=== PATIENT | female | born 1965 | race Caucasian/White ===

== ENCOUNTER 2016-12-24 15:12 | Observation (INO) ==
--- NOTE | 2016-12-24 16:41 | History & Physical Report ---
<Maylin Bernardo Sonya - Last Filed: 12/24/16 17:12> History of Present Illness Date: 12/24/16 Chief complaint: right heel wound HPI: Began treating what she thought was a plantar wart to the heel of her right foot x 2 weeks, using duct tape. It seemed like it started to improve - she noticed a little hole or indention, but the callous remained. After about a week of treatment, she began running fevers up to 100.8, which occurred daily x1 week. She started having increased pain, swelling, and redness, and presented to [facility] ED on 12/20/16. A CT scan was done showing severe calcaneal area cellulitis; no osteomyelitis; no drainable fluid collection. She was discharged with Rx Clindamycin 300 mg QID. She followed up [facility] on 12/24/16 with really no improvement. Bedside I&D was done and cultures were obtained. However, given her failed outpatient treatment she was directly admitted to the hospitalist service for systemic abx and wound care referral. Review of Systems All systems: reviewed and no additional remarkable complaints except as stated - Constitutional Constitutional: Present: fever(s) (1 week before she went to the ED 100.8). Absent: chills, fatigue, headache(s), lethargy - EENMT Eyes: Absent: change in vision Nose: Absent: obstruction Mouth/Throat: Absent: sore throat - Cardiovascular Cardiovascular: Absent: chest pain, palpitations Vascular: Absent: pedal edema - Respiratory Respiratory: Absent: cough - Gastrointestinal Gastrointestinal: Absent: abdominal pain, constipation, diarrhea, nausea, vomiting - Genitourinary Menstruation: post menopausal (2010) - Musculoskeletal Musculoskeletal: Absent: back pain, muscle cramps, muscle weakness - Integumentary/Breasts Integumentary: Present: wounds (right heel) - Neurological Neurological: Present: abnormal gait. 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 Hospitalized in 2010 for pancytopenia, thought to be secondary to Imuran. HLD HTN DM2 GERD (mild) Obesity - BMI 32 Surgical History: Bone marrow bx in 2010 (Dr. Berry) - neg. Cholecystectomy in 2002. Family History: Father around age 78 - he had emphysema and unknown kind of cancer Mother and siblings still alive and well. 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 Absent: conjunctival icterus, scleral injection ENT: Present: mucous membranes moist, oropharynx clear - Routine Neck Exam Present: supple, lymphadenopathy - Routine Respiratory Exam Present: CTA bilaterally - Routine Cardiovascular Exam Present: RRR, S1, S2 - Routine Abdominal Exam Present: soft, normoactive bowel sounds, non distended, non tender - Routine Extremities Exam Present: clubbing (minimal), no edema, pulses intact, normal capillary refill - Routine Skin Exam Present: intact, dry, warm - Routine Neurological Exam Present: alert, oriented X3, vision grossly intact, hearing grossly intact - Routine Psychiatric Exam Present: normal affect, normal thought process Assessment and Plan (1) Cellulitis of heel, right Current visit: Yes Status: Acute (2) Type 2 diabetes mellitus Current visit: Yes Status: Chronic (3) Failure of outpatient treatment Problem details: Took clindamycin from 12/20-12/24 without improvement Current visit: Yes Status: Acute DVT Prophylaxis: SCD's Resuscitation Status: Full Code Assessment and Plan: Admit to observation status - cellulitis and failed outpatient treatment with 4 days of clindamycin. Consult Dr. Robertson for wound evaluation. Obtain MRI. CT was done on 12/20 showing cellulitis without osteomylelitis; phlegmon without drainable abscess. Pain meds : Dilaudid and [place] PRN. Will make NPO at midnight in the event surgery is indicated. Obtain baseline labs: CBC, CMP, CRP, lactate, BC, wound cx, hgb A1c. DM2 - used to take Metformin but hasn't for a long time; the only time she was on insulin was when she was hospitalized in 2010. Monitor blood sugars fasting and post prandial. Suspect we will need to restart Metformin at a minimum. Hx of TITLE SUPERVISOR vasculitis, immunocompromised state, previously on Imuran (which was dc'd d/t pancytopenia in 2010) and prednisone. Currently not treated. Tobacco abuse - she states she can quit on her own and pleasantly refused tobacco cessation information. Nicotine patch available. Discussed with CARLOS Norman with Dr. Robertson and Dr. Aguila. Further orders pending lab results. She will likely need PT/OT consult prior to discharge, given her difficulty ambulating. Sepsis Assessment - Focused Exam Vital Signs Temp Pulse Resp BP Pulse Ox 12/24/16 15:48 96.7 F L 77 18 175/93 H 100 Hospital Course Summary Disclaimer: The visit summary below is not to be considered part of the above Progress Note. Hospital Course: 12/24/16 17:30 Admit to observation status - cellulitis and failed outpatient treatment with 4 days of clindamycin. Consult Dr. Robertson for wound evaluation. Obtain MRI. CT was done on 12/20 showing cellulitis without osteomylelitis; phlegmon without drainable abscess. Pain meds : Dilaudid and [place] PRN. Will make NPO at midnight in the event surgery is indicated. Obtain baseline labs: CBC, CMP, CRP, lactate, BC, wound cx, hgb A1c. DM2 - used to take Metformin but hasn't for a long time; the only time she was on insulin was when she was hospitalized in 2010. Monitor blood sugars fasting and post prandial. Suspect we will need to restart Metformin at a minimum. Hx of TITLE SUPERVISOR vasculitis, immunocompromised state, previously on Imuran (which was dc'd d/t pancytopenia in 2010) and prednisone. Currently not treated. Tobacco abuse - she states she can quit on her own and pleasantly refused tobacco cessation information. Nicotine patch available. Discussed with CARLOS Norman with Dr. Robertson and Dr. Aguila. Further orders pending lab results. She will likely need PT/OT consult prior to discharge, given her difficulty ambulating. <Olesya Aguila - Last Filed: 12/24/16 19:55> History of Present Illness Date: 12/24/16 [facility] Patient Stated Medical History Cerebrovascular Accident Yes: 2010 Dental Problems Yes: upper dentures Hypertension Yes Diabetes Mellitus Type 2 Yes: NOT ON MEDS ANYMORE Gastroesophageal Reflux Yes Disease Cellulitis CURRENT Shingles Yes: in the 90's Exam Vital Signs: Temp Pulse Resp BP Pulse Ox 96.7 F L 77 18 175/93 H 100 12/24/16 15:48 12/24/16 15:48 12/24/16 15:48 12/24/16 15:48 12/24/16 15:48 Height: 1.55 m Weight: 76.8 kg Results - Labs CBC & Chem 7: 12/24/16 17:47 12/24/16 17:47 Assessment and Plan (1) Cellulitis of heel, right Current visit: Yes Status: Acute (2) Sepsis Current visit: Yes Status: Acute (3) Type 2 diabetes mellitus Problem details: A1C 9.5 on admission Current visit: Yes Status: Chronic (4) Failure of outpatient treatment Problem details: Took clindamycin from 12/20-12/24 without improvement Current visit: Yes Status: Acute (5) HTN (hypertension) Current visit: Yes Status: Chronic Assessment and Plan: I have independently evaluated and examined this patient. I reviewed the chart, the patient's history, and the SOLICITOR PATENT's documented findings as above. We discussed and formulated the assessment and plan as above with additions as below: Mrs. Jones is admitted with 2 weeks of pain in the plantar right foot with fever the past week, failure to respond to outpatient antibiotics as described above, and drainage at [facility] earlier today. No necrotic tissue was evident but there was brownish fluid when the wound was opened-cultures obtained. Examination reveals patient to be alert and cooperative. Temperature was low on arrival and blood pressure high. Respirations are nonlabored, breath sounds clear Neck rhythm regular Extremities without edema; plantar surface of the right foot has an area of erythema approximately 10 x 10 cm with irregular margins extending from the heel to the mid foot and onto the medial aspect of the foot. Just anterior to the heel there is a firm hypersensitive area which was opened with approximately 2 cm linear incision earlier today, there is minimal drainage and exposed surfaces appear to be viable tissue. There is a small callused area just posterior to this that appears to have been trimmed previously. There is warm to touch and exquisitely tender. White count is modestly elevated at 2.2, C-reactive protein 60.1, procalcitonin is nondetectable and lactic acid 1.0. Wound culture and blood cultures pending. Broad-spectrum antibiotics initiated, MRI ordered, surgical consultation pending. Diabetes is uncontrolled-diabetic diet, Accu-Cheks, corrective insulin, resume metformin. Pyuria noted-urine culture pending. CT of foot obtained last week and reviewed by myself, discussed with Dr. Jenkins and [facility] to admission, laboratory data reviewed, discussed with nursing. Sepsis Assessment - Evaluation Possible source: bone/joint, skin/soft tissue Confirmed Suspected Infection: Yes SIRS Criteria: temperature < or equal to 96.8, WBC > or equal to 12,000, plasma CRP >2 above normal - Focused Exam Vital Signs Temp Pulse Resp BP Pulse Ox 12/24/16 15:48 96.7 F L 77 18 175/93 H 100 Hospital Course Summary Disclaimer: The visit summary below is not to be considered part of the above Progress Note.
[2016-12-24] MEDS ORDERED: HYDROMORPHONE 2 MG/ML INJECTION IVP PRN (16:49)
[2016-12-24] MEDS ORDERED: ONDANSETRON 4 MG/2 ML INJECTION IVP PRN (16:49)
[2016-12-24] MEDS ORDERED: SALINE FLUSH 10ml SYRINGE IVF PRN (16:49)
[2016-12-24] MEDS ORDERED: NICOTINE 14 MG PATCH TD PRN (16:59)
[2016-12-24] MEDS ORDERED: LEVOFLOXACIN PREMIX 500 MG/100 ML BAG IV SCH (17:00)
[2016-12-24] MEDS ORDERED: SENNA + DOCUSATE TABLET PO PRN (17:02)
[2016-12-24] MEDS: NS 1,000 ML IV SCH ×2 (17:48→23:30)
--- NOTE | 2016-12-24 18:04 | Pharmacy Consult-Antibiotics ---
Pharmacy Consult-Vancomycin - Laboratory Information WBC 12.2 T/MM3 (4.5-11.0) H 12/24/16 17:47 Renal Fx WNL's, from earlier labs. Will start VANCOMYCIN 2gm IV q12hrs. Will check trough level to confirm within target range of 15-20mcg/ml. Thank you
[2016-12-24] MEDS: HYDROCODONE/APAP 5mg/325mg TABLET PO PRN ×2 (19:03→23:29)
[2016-12-24] MEDS ORDERED: INSULIN ASPART 100unit/ml INJECTION SQ PRN (19:51)
[2016-12-25] MEDS: HYDROCODONE/APAP 5mg/325mg TABLET PO PRN ×3 (05:38→15:29)
[2016-12-25] MEDS: NS 1,000 ML IV SCH ×2 (07:16→15:28)
[2016-12-25] MEDS: METFORMIN 500 MG TABLET PO SCH ×2 (07:57→17:34)
[2016-12-25] MEDS ORDERED: NICOTINE PATCH REMOVAL TD SCH (09:00)
--- NOTE | 2016-12-25 09:38 | Orthopedic Consult Note ---
Orthopedic Consultation HPI - Consultation Info Consult Date: 12/25/16 Attending Physician: Maycol Robertson MD Consult Reason: other (right heel wound) - HPI Elements right foot Injury: No (she was self treating a "plantar wart" 2 weeks ago) Pain: sharp, throbbing Onset: gradual Radiating: No Severity: moderate (with IV pain medication) Duration: other (2 weeks. ) How Often Does Pain Occur: constant Previous Surgery: No Previous Injury: No Aggrevated by: standing, walking, all activity Associated Symptoms: swelling, fever, warmth Treatments Tried: pain medications Recommendation: other (MRI for evaluation of abcess and possibly I&D) - History of Present Illness This is a 51 year old female, diabetic with recent A1c of 9.5, with a 2 week onset of right heel pain. She thought it was a plantar wart and started self treating it with duct tape. After a week of treatment she started to run a fever up to 100.8. Her pain increased in the heel and she developed redness and swelling. She presented to [facility] ER for evaluation on 12/20/16. Evaluation included a CT scan which showed no osteomyelitis or fluid collection. An Rx of Clindamycin 300mg PO QID was provided. After 5 days of treatment she follow up with [facility] for further evaluation. A bedside I&D was done and cultures were taken. She was then admitted under the hospitalist service due to failure to improve. She presently is in a fair amount of pain controlled only with narcotics. Review of her vitals and lab work shows her white count has improved during her stay and she has been afebrile. She denies present nausea, chest pain, or shortness of breath or overall fatigue. She is unable to stand secondary to pain. MRI is pending. Review of Systems - Constitutional Constitutional: Present: fever(s) (as per HPI). Absent: chills, night sweats - Cardiovascular Cardiovascular: Absent: chest pain Vascular: Absent: pedal edema - Respiratory Respiratory: Absent: cough - Gastrointestinal Gastrointestinal: Absent: abdominal pain, diarrhea, hematemesis - Genitourinary Genitourinary General: Absent: chills Genitourinary Female: Present: dysuria - Musculoskeletal Musculoskeletal: Present: as per HPI - Neurological Neurological: Absent: numbness - Endocrine Endocrine: Absent: heat intolerance - Hematologic/Lymphatic Hematologic/Lymphatic: Absent: lymphadenopathy PFS Patient Stated Medical History Cerebrovascular Accident Yes: 2010 Dental Problems Yes: upper dentures Hypertension Yes Diabetes Mellitus Type 2 Yes: NOT ON MEDS ANYMORE Gastroesophageal Reflux Yes Disease Cellulitis CURRENT Shingles Yes: in the Surgical History: Bone marrow bx in 2010 (Dr. Berry) - neg. Cholecystectomy in 2002. - Social History Smoking status: Current every day smoker (0.5 ppd) Current residence: Apartment/Private Home Medications Allergies Allergy/AdvReac Type Severity Reaction Status Date / Time Penicillins Allergy Unknown Verified 12/19/16 23:52 Orthopedic Exam Vital signs: Temp Pulse Resp BP Pulse Ox 97.6 F 62 16 139/72 96 12/25/16 07:00 12/25/16 07:00 12/25/16 07:00 12/25/16 07:00 12/25/16 07:00 - Constitutional General Appearance: Present: alert, orientated x3, no acute distress - Respiratory Exam Present: non-labored - Cardiovascular Exam Present: pedal pulses intact Capillary Refill: < 2-3 Seconds - Abdominal Exam Present: soft - Extremities Exam Present: edema, pulses intact Comments: very tender calcaneous, 10 by 10cm are of redness, not acitivity draining but appears like a large pustual. - Integumentary Exam Present: erythema - Lymphatic Lymphatic: Absent: lymphedema - Neurological Exam Present: intact to light touch - Psychiatric Exam Present: alert, oriented - Labs Result Diagrams: 12/25/16 04:23 12/25/16 04:23 Abnormal lab results 12/24/16 12/24/16 12/24/16 Range/Units 17:26 17:47 17:47 WBC 12.2 H (4.5-11.0) T/MM3 MPV 8.8 L (9.4-12.4) UM3 Neut % (Auto) 81.2 H (33-66) % Lymph % (Auto) 13.2 L (23-45) % Neut # 9.9 H (1.8-7.7) T/MM3 Creatinine 0.6 L (0.7-1.2) MG/DL Glucose 141 H (65-110) MG/DL Hemoglobin A1c 9.5 H (6.1-7.9) % C-Reactive Protein 60.1 H (0-9) MG/L Ur Specific [place] 1.010 L (1.015-1.025) Urine WBC 10-20 H (0-5) /HPF Urine Bacteria 4+ H (NEGATIVE) 12/25/16 12/25/16 Range/Units 04:23 04:23 WBC (4.5-11.0) T/MM3 MPV 8.9 L (9.4-12.4) UM3 Neut % (Auto) 76.3 H (33-66) % Lymph % (Auto) 15.8 L (23-45) % Neut # (1.8-7.7) T/MM3 Creatinine 0.6 L (0.7-1.2) MG/DL Glucose 115 H (65-110) MG/DL Hemoglobin A1c (6.1-7.9) % C-Reactive Protein (0-9) MG/L Ur Specific [place] (1.015-1.025) Urine WBC (0-5) /HPF Urine Bacteria (NEGATIVE) H & H 12/24/16 12/25/16 Range/Units 17:47 04:23 Hgb 14.0 12.5 (12-16) GM/DL Hct 39.7 36.9 (36-46) % Impression and Recommendation (1) Cellulitis of heel, right Current visit: Yes Status: Acute MRI for further evaluation, probable I&D later today. keep NPO, continue antibiotics and pain control. Risks and benefits of the recommended procedure were discussed with the patient and/or patient's legal employee relations representative. They include: infection, nerve damage, artery damage, stroke, AR, PE, DVT, ileus, continued pain, or risk that the injury may not heal despite surgery. There are also medical risks of anesthesia. Risks are not limited to the above mentioned alone. (2) Failure of outpatient treatment Problem details: Took clindamycin from 12/20-12/24 without improvement Current visit: Yes Status: Acute Hospital Course Summary Disclaimer: The visit summary below is not to be considered part of the above Progress Note. Hospital Course: 12/24/16 17:30 Admit to observation status - cellulitis and failed outpatient treatment with 4 days of clindamycin. Consult Dr. Robertson for wound evaluation. Obtain MRI. CT was done on 12/20 showing cellulitis without osteomylelitis; phlegmon without drainable abscess. Pain meds : Dilaudid and [place] PRN. Will make NPO at midnight in the event surgery is indicated. Obtain baseline labs: CBC, CMP, CRP, lactate, BC, wound cx, hgb A1c. DM2 - used to take Metformin but hasn't for a long time; the only time she was on insulin was when she was hospitalized in 2010. Monitor blood sugars fasting and post prandial. Suspect we will need to restart Metformin at a minimum. 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 Currently not treated. Tobacco abuse - she states she can quit on her own and pleasantly refused tobacco cessation information. Nicotine patch available. Discussed with CARLOS Norman with Dr. Robertson and Dr. Aguila. Further orders pending lab results. She will likely need PT/OT consult prior to discharge, given her difficulty ambulating.
[2016-12-25] MEDS ORDERED: SALINE FLUSH 10ml SYRINGE ONE (10:06)
[2016-12-25] MEDS ORDERED: GADOBUTROL 10mMol/10ml INJECTION IVP ONE (10:06)
--- NOTE | 2016-12-25 11:22 | Magnetic Resonance Report ---
Indication: cellulitis right heel PROCEDURE: MR foot RT wo/w con: Encounter: Initial Comparison: Right foot CT dated December 20, 2016 Technique: Multiplanar multisequence MR imaging of the right foot was performed with and without contrast. Contrast: 7.5 mL Gadavist Findings: Bone marrow signal intensity is within normal limits. No acute fracture identified. The Achilles tendon is intact as are the ankle flexor and extensor tendons. There is diffuse edema within the intrinsic foot musculature, a common finding in diabetic patients. Lisfranc ligament is intact. No focal fluid collection identified. No rim-enhancing abscess seen. There is subcutaneous edema in the the hindfoot and ankle regions. There is no evidence of abnormal bone marrow enhancement on the postcontrast images. There is some mild enhancement within the edematous subcutaneous tissues of the hindfoot. There is a probable soft tissue ulcer seen indicated by a marker. This area extends to a depth of approximately 1 cm but does not extend to the adjacent calcaneus. This is superficial to the plantar fascia. Inferior calcaneal spurring is noted. Impression: Findings of a hindfoot cellulitis particularly involving the posterior plantar area with a probable ulcerated skin wound. No drainable abscess or evidence for osteomyelitis. .
[2016-12-25] MEDS ORDERED: DAPTOmycin 500 MG in NS 10 ML IVP SCH (13:00)
--- NOTE | 2016-12-25 16:15 | Discharge Summary ---
Discharge Plan - Med Rec/Dispo Referrals/Follow Up: Matt Robertson MD [Physician] - (wednesday at Wound Care) Jennifer Mays MD [Physician] - (Wednesday at wound care) Prescriptions: New Hydrocodone/APAP 5/325 [[place] 5/325] 1 - 2 tab PO Q4H PRN #30 PRN Reason: Pain Metformin [Glucophage] 500 mg PO BIDWM #60 Levofloxacin [Levaquin] 750 mg PO ACB #7 metroNIDAZOLE [Metronidazole] 500 mg PO BID #14 tablet DAPTOmycin [Cubicin Rf] 500 mg IV DAILY #7 vial Discontinued Clindamycin HCl [Cleocin HCl] 1 cap PO QID #40 cap - Disposition 01 Discharged Home, Self-Care
--- NOTE | 2016-12-25 19:11 | Discharge Summary ---
Discharge Information Date of admission: 12/24/16 15:35 Anticipated date of discharge: 12/25/16 Attending Physician: Olesya Aguila MD Primary care physician: Lakisha Kirkland APRN Consults: Matt Robertson M.D. - Discharge Diagnosis (1) Cellulitis of heel, right Status: Acute (2) Sepsis Status: Acute (3) Type 2 diabetes mellitus Qualifiers: Diabetes mellitus complication status: with hyperglycemia Diabetes mellitus fdc insulin use: without predatory animal exterminator use Qualified Code(s): E11.65 - Type 2 diabetes mellitus with hyperglycemia Problem Details: A1C 9.5 on admission Status: Chronic (4) Failure of outpatient treatment Problem Details: Took clindamycin from 12/20-12/24 without improvement Status: Acute (5) HTN (hypertension) Qualifiers: Hypertension type: essential hypertension Qualified Code(s): I10 - Essential (primary) hypertension Status: Chronic - Laboratory Labs: On admission white count 12.2, differential unremarkable. Lactic acid 1.0 and procalcitonin undetectable. CRP 60.1. A1c 9.5 12/25/16 04:23 12/25/16 04:23 - Microbiology Microbiology 12/24/16 17:46 Peripheral/Iv Start Blood Culture - Preliminary No Growth After 1 Day 12/24/16 17:46 Peripheral/Iv Start Blood Culture - Preliminary No Growth After 1 Day 12/24/16 17:43 Foot,Right Gram Stain - few neutrophils, few gram-positive cocci in pairs, few gram-positive cocci in clusters 12/24/16 17:43 Foot,Right Superficial Wound Culture - Preliminary Early growth 12/24/16 17:26 Not Provided Urine Culture - >100,000 Gram Negative Brandon - Radiology Radiology: MRI of the right foot with and without contrast on 12/25/16: Findings of a hindfoot cellulitis particularly involving the posterior plantar area with a probable ulcerated skin wound. No drainable abscess or evidence for osteomyelitis. History of Present Illness HPI: Began treating what she thought was a plantar wart to the heel of her right foot x 2 weeks, using duct tape. It seemed like it started to improve - she noticed a little hole or indention, but the callous remained. After about a week of treatment, she began running fevers up to 100.8, which occurred daily x1 week. She started having increased pain, swelling, and redness, and presented to [facility] [place] [facility] on 12/20/16. A CT scan was done showing severe calcaneal area cellulitis; no osteomyelitis; no drainable fluid collection. She was discharged with Rx Clindamycin 300 mg QID. [facility] with really no improvement. Bedside I&D was done and cultures were obtained. However, given her failed outpatient treatment she was directly admitted to the hospitalist service for systemic abx and wound care referral. Hospital Course Hospital course: Mrs. Saavedra was admitted to the hospital on 12/24 with cellulitis and a wound of her right plantar foot which had been opened in the office prior to admission. The area of erythema was personally 10 x 10 cm and was exquisitely tender to palpation. She was started on broad-spectrum antibiotics for coverage of diabetic foot infections with Levaquin, metronidazole, and vancomycin. She developed a localized reaction consisting primarily of itching after the initial dose of vancomycin and refused to scheduled second dose. Subsequently she was switched from vancomycin to daptomycin on 12/25. Gram stain suggested gram-positive organisms but culture obtained in the outpatient setting is not available and there is no growth yet to identify an organism in the hospital culture. MRI was obtained without evidence of abscess or osteomyelitis. She was seen in consultation by Dr. Robertson and outpatient IV antibiotics were recommended with follow-up in wound care. PICC line was placed permit continuation of IV daptomycin with oral Levaquin/metronidazole pending cultures. Patient will be seen in the infusion center daily until reevaluated with culture results in wound care by Dr. Robertson and hopefully Dr. Kowalski of infectious disease next week. There's been no recent treatment for diabetes, A1c was elevated at 9.5. Metformin was resumed at 500 mg twice a day and patient is instructed to follow- up with her outpatient provider next week for further management. Stable for discharge on 12/25. She continues to describe discomfort when her wound is dressed or examined but otherwise feels well and has been afebrile. Respirations are nonlabored and the patient is alert and cooperative. Cardiac rhythm regular. Wound had been readdressed shortly before my arrival and was subsequently not directly examined by me. Stable for discharge on antibiotics as described above. Discharge medications reviewed with the patient. [facility] next week as described above. Discussed with orthopedics, case management, and nursing. Discharge Plan - Med Rec/Dispo Referrals/Follow Up: Jennifer Kowalski MD [Physician] - (Next Wednesday at wound care) Matt Robertson MD [Physician] - (next Wednesday at Wound Care) Martha Instructions: Foot Care for People with Diabetes (DC), Diabetic Foot Ulcers (DC) Additional Instructions: PLEASE MAKE AN APPOINTMENT FOR THE WOUND CLINIC TO SEE DR. KOWALSKI FOR WednesdayDecember AT [phone]. Prescriptions: New Hydrocodone/APAP 5/325 [[place] 5/325] 1 - 2 tab PO Q4H PRN #30 PRN Reason: Pain Metformin [Glucophage] 500 mg PO BIDWM #60 Levofloxacin [Levaquin] 750 mg PO ACB #7 metroNIDAZOLE [Metronidazole] 500 mg PO BID #14 tablet DAPTOmycin [Cubicin Rf] 500 mg IV DAILY #7 vial Discontinued Clindamycin HCl [Cleocin HCl] 1 cap PO QID #40 cap - Disposition 01 Discharged Home, Self-Care
[2016-12-26] MEDS ORDERED: LEVOFLOXACIN 750 MG TABLET PO SCH (09:00)
== END 2016-12-25 17:55 | disposition home or self-care (01) ==
LOC: SRG
PROVIDERS: ADMIT Internal Medicine; ATTEND Internal Medicine